=== PATIENT | female | born 1970 | race Caucasian/White ===

== ENCOUNTER 2024-02-23 16:11 | Emergency (ER) | payer OTHER, SELFPAY ==
[2024-02-23 16:13] VITALS: BP 128/82; PULSE 98; RESP 16; TEMP 36.2; O2SAT 100
--- NOTE | 2024-02-23 16:39 | ECG_ITS ---
Test Date: 2024-02-23 17:55:02 Measurements Intervals [place] Rate: 107 P: 33 DC: 131 QRS: 77 QRSD: 93 T: 47 QT: 346 QTc: 463 Interpretive Statements SINUS TACHYCARDIA BASELINE ARTIFACT- II, III, AVR, AVL, AVF, V1 ABNORMAL ECG No previous ECG available for comparison Electronically Signed On 02-23-2024 20:07:39 CDT by Abelardo Bateman D.O.
--- NOTE | 2024-02-23 17:03 | ED.PSYCH ---
HPI - Psych General Chief Complaint: Psychiatric Symptoms <Gabe King Gay III, DO - Last Filed: 03/02/24 08:13> Stated Complaint: depression <Gabe King Gay III, DO - Last Filed: 03/02/24 08:13> Time Seen by Provider: 02/23/24 16:56 <Gabe King Gay III, DO - Last Filed: 03/02/24 08:13> History of Present Illness HPI Narrative: Pt has been feeling increasingly depressed over last several weeks. Pt lost a brother and a sister years ago and more recently went through a divorce. Pt having occasional thoughts about killing herself by driving car into oncoming traffic. <Gabe King Gay III, DO - Last Filed: 03/02/24 08:13> Review of Systems Review of Systems: All systems reviewed & are unremarkable except as noted in HPI and below <Gabe King Gay III, DO - Last Filed: 03/02/24 08:13> PMFSH Social History Social History: Social History Substance use type: does not use <Gabe King Gay III, DO - Last Filed: 03/02/24 08:13> Exam Const: General: healthy appearing and no acute distress <Gabe King Gay III, DO - Last Filed: 03/02/24 08:13> Nutritional Appearance: well nourished <Gabe King Gay III, DO - Last Filed: 03/02/24 08:13> Orientation/consciousness: patient oriented x3 <Gabe King Gay III, DO - Last Filed: 03/02/24 08:13> Limitations: no limitations <Gabe King Gay III, DO - Last Filed: 03/02/24 08:13> HENMT: Head: normal to inspection <Gabe King Gay III, DO - Last Filed: 03/02/24 08:13> Resp: Effort & Inspection: normal respiratory effort <Gabe King Gay III, DO - Last Filed: 03/02/24 08:13> Auscultation: clear to auscultation bilaterally <Gabe King Gay III, DO - Last Filed: 03/02/24 08:13> Cardio: Rate: regular rate <Gabe King Gay III, DO - Last Filed: 03/02/24 08:13> Rhythm: regular rhythm <Gabe King Gay III, DO - Last Filed: 03/02/24 08:13> GI: GI Palp: Yes Soft to palpation and No Tenderness to palpation present (GI) <Gabe King Gay III, DO - Last Filed: 03/02/24 08:13> Auscultation: normal bowel sounds <Gabe King Gay III, DO - Last Filed: 03/02/24 08:13> Skin: General skin exam: normal color <Gabe King Gay III, DO - Last Filed: 03/02/24 08:13> Rashes: no rashes <Gabe King Gay III, DO - Last Filed: 03/02/24 08:13> Wounds: no wounds <Gabe King Gay III, DO - Last Filed: 03/02/24 08:13> Neuro: General: patient oriented x3, moves all extremities, no meningeal signs, no focal motor deficits and CN's II-XI intact bilaterally <Gabe King Gay III, DO - Last Filed: 03/02/24 08:13> Cranial nerves: Yes Nystagmus not present <Gabe King Gay III, DO - Last Filed: 03/02/24 08:13> Speech: normal speech <Gabe King Gay III, DO - Last Filed: 03/02/24 08:13> Extrem: General: normal to inspection and no clubbing, cyanosis or edema <Gabe King Gay III, DO - Last Filed: 03/02/24 08:13> Psych: Affect: Sad affect present <Gabe King Gay III, DO - Last Filed: 03/02/24 08:13> Attitude: cooperative <Gabe King Gay III, DO - Last Filed: 03/02/24 08:13> Course Vital Signs Vital signs: Vital Signs Temperature 97.1 F L 02/23/24 16:13 Pulse Rate 98 02/23/24 16:13 Respiratory Rate 16 02/23/24 16:13 Blood Pressure 128/82 02/23/24 16:13 Pulse Oximetry 100 02/23/24 16:13 Temperature 97.8 F 02/23/24 21:13 Pulse Rate 88 02/23/24 21:13 Respiratory Rate 14 02/23/24 21:13 Blood Pressure 131/66 02/23/24 21:13 Pulse Oximetry 100 02/23/24 21:13 <Gabe King Gay III, DO - Last Filed: 03/02/24 08:13> Vital Signs Temperature 97.1 F L 02/23/24 16:13 Pulse Rate 98 02/23/24 16:13 Respiratory Rate 16 02/23/24 16:13 Blood Pressure 128/82 02/23/24 16:13 Pulse Oximetry 100 02/23/24 16:13 Temperature 97.8 F 02/23/24 21:13 Pulse Rate 88 02/23/24 21:13 Respiratory Rate 14 02/23/24 21:13 Blood Pressure 131/66 02/23/24 21:13 Pulse
[2024-02-23 17:30] LABS: Basophils Absolute Auto 0.1 K/mm3 (0.0-0.1); Basophils Percent Auto 0.6 % (0.2-1.2); Eosinophils Absolute Auto 0.1 K/mm3 (0-0.3); Eosinophils Percent Auto 1.2 % (0-4.4); Hematocrit 45.4 % (37.0-47.0); Immature Granulocyte Absolute 0.03 K/mm3 (0.00-0.031); Immature Granulocyte Percent A 0.3 % (0-0.5); Lymphocytes Absolute Auto 2.02 K/mm3 (0.9-3.2); Lymphocytes Percent Auto 23.3 % (18.3-44.2); Mean Corpuscular Hemoglobin 27.4 pg (26-34); Mean Corpuscular Volume 82.8 fl (80-100); Mean Platelet Volume 10.3 fl (7.4-10.4); Monocytes Absolute Auto 0.6 K/mm3 (0.1-0.6); Monocytes Percent Auto 6.6 % (2.6-8.5); Neutrophils Absolute Auto 5.9 K/mm3 (1.3-6.7); Platelet Count Result 337 k/mm3 (150-375); Red Blood Count 5.48 M/mm3 (4.2-5.4); Red Cell Distribution Width 13.5 % (11.5-14.5); White Blood Count 8.7 K/mm3 (4.5-10.0)
[2024-02-23 17:32] LABS: Add Urine Microscopic? NO; Appearance Urine Clear (Clear); Bilirubin Urine Negative (Negative); Blood Urine Negative (Negative); Color Urine Yellow (Yellow); Glucose Urine UA Negative (Negative); Ketones Urine Negative (Negative); Leukocyte Esterase Ur Negative LEU/UL (Negative); Nitrate Urine Negative (Negative); Protein Urine Negative (Negative); Specific Grav Ur 1.021 (1.001-1.035); Urobilinogen Urine 0.2 mg/dL (<2.0); pH Urine 5.5 (5.0-9.0)
[2024-02-23 17:43] LABS: Ethanol < 10 mg/dL (<10)
[2024-02-23 17:45] LABS: Alanine Aminotransferase 27 U/L (6-35); Albumin Level 4.9 g/dL (3.5-5.1); Alkaline Phosphatase 94 U/L (38-126); Anion Gap 13 mmol/L (4-12); Aspartate Amino Transferase 25 U/L (14-36); Bilirubin,Total 0.8 mg/dL (0.2-1.3); Blood Urea Nitrogen 10 mg/dL (7-17); Calcium 9.7 mg/dL (8.4-10.2); Carbon Dioxide 23 mmol/L (22-30); Chloride 103 mmol/L (98-107); Estimated CRCL calculation 68 ml/min; Estimated Glomerular Filt Rate > 60; Glucose 99 mg/dL (65-110); Potassium 3.9 mmol/L (3.4-5.0); Sodium 139 mmol/L (137-145)
[2024-02-23 17:46] LABS: Amphetamine Screen Urine Negative (Negative); Barbiturate Screen Urine Negative (Negative); Benzodiazepines Screen Urine Negative (Negative); Cannabinoid Screen Urine Negative (Negative); Cocaine Screen Urine Negative (Negative); Methadone Screen Urine Negative (Negative); Opiate Screen Urine Negative (Negative); Phencyclidine Screen Urine Negative (Negative)
[2024-02-23 17:58] LABS: BEDSIDEPREGUCG Negative (Negative)
[2024-02-23 18:06] LABS: Influenza A QL RT-PCR Negative (Negative); Influenza B QL RT-PCR Negative (Negative); SARS-CoV-2 RNA PCR Negative (Negative)
[2024-02-23 18:23] LABS: Free T4 Free Thyroxine 0.81 ng/mL (0.78-2.19)
--- NOTE | 2024-02-23 18:34 | PC.NURSE ---
Notified physician at [id number] of suicide risk. MD assessed patient at this time and stated patient did not need site safety representative.
[2024-02-23 21:13] VITALS: BP 131/66; PULSE 88; RESP 14; TEMP 36.6; O2SAT 100
== END 2024-02-23 21:13 | disposition home or self-care (01) ==
PROVIDERS: Emergency Medicine; Emergency Provider Emergency Medicine; PCP Nurse Practitioner Family
DX: F32.A Depression, unspecified (principal); Z11.52 Encounter for screening for COVID-19; R00.0 Tachycardia, unspecified
CPT/HCPCS: 36415; 80053; 80307; 81003; 81025; 84439; 84443; 85025; 87636; 93005; 99284